=== PATIENT | male | born 1955 | race Caucasian/White ===

== ENCOUNTER → 2021-04-15 01:17 | Outpatient (CLI) | payer OTHER, SELFPAY ==
[2021-04-15] MEDS: Gadoterate meglumine 20 ML VIAL 18 ML IVP (10:07)
[2021-04-15] MEDS: Normal Saline Flush 10 ML SYR IVP (10:08)
--- NOTE | 2021-04-15 11:05 | DI.MRI_ITS ---
Exam(s) MR CERVICAL SPINE WO/W EXAM: MR CERVICAL SPINE WO/W CLINICAL HISTORY: METASTATIC PROSTATE CA,C61,C79.51,S/P RX,ASSESS DISEASE,? POSSILE RADIOTHER TECHNIQUE: Multiplanar multisequence MRI of the cervical spine was performed with both pre and post contrast infused sequences. IV contrast was 18 mL [facility] COMPARISON: No exams were available for comparison FINDINGS: CERVICOMEDULLARY JUNCTION: Intact with no evidence of cerebellar tonsillar ectopia. No obvious abnor mality of the odontoid process. No evidence of Chiari 1 malformation. CERVICAL SPINAL CORD: There is no abnormal signal in the cervical spinal cord and no evidence of foca l cord atrophy nor focal cord swelling. No abnormal enhancement evident within the cervical cord. N o abnormal epidural enhancement OSSEOUS:There are no cervical fractures evident. No significant osseous lesions in the cervical vert ebrae. No abnormal intraosseous enhancement INDIVIDUAL LEVELS: C2-3: No disc herniation nor central canal stenosis. No foraminal stenosis. No facet arthropathy. C3-4: Preserved disc height and signal. Mild annular bulging with a small shallow posterolateral left disc protrusion which extends posteriorly 1 millimeters and is approximately 6 millimeters wide. Im presses the thecal sac but not the spinal cord. Mild facet arthropathy bilaterally. No prominent fo raminal stenosis. No significant central canal stenosis. C4-5: No disc herniation nor central canal stenosis.Mild facet arthropathy. Mild foraminal stenosis C5-6: Moderate disc space narrowing mild symmetrical annular bulging without a dominant disc herniati on. Small right-sided Luschka joint osteophytes. No prominent foraminal stenosis. No prominent fac et arthropathy. C6-7: Preserved disc height and signal. Mild left-sided annular bulging but no prominent disc hernia tion. Central canal dimensions normal. No significant foraminal stenosis C7-T1: No disc herniation nor central canal stenosis. No facet arthropathy.No foraminal stenosis. IMPRESSION: 1. Mild findings as described above. No prominent disc herniations nor prominent central canal steno sis nor prominent foraminal stenosis a subtle posterolateral left disc protrusion at C3-4 is describe d above. 2. No significant abnormal findings nor abnormal enhancement within the cervical spinal cord. 3. No abnormal epidural nor intraosseous enhancement. DATA REPOSITORY:
== END ==
PROVIDERS: PCP Family Medicine; Visit Provider Radiology Radiation Oncology
DX: C61 Malignant neoplasm of prostate (principal); C79.51 Secondary malignant neoplasm of bone; M50.21 Other cervical disc displacement, high cervical region
CPT/HCPCS: 72156